=== PATIENT | female | born 1950 | race Caucasian/White ===

== ENCOUNTER → 2024-03-03 | Outpatient (CLI) | payer BC, MEDICARE, SELFPAY ==
[2024-03-03 09:04] LABS: Collection Type, Urine Clean Catch; Squamous Epithelial Cell,Urine 0 /hpf (0-5); WBC,Urine 0 /hpf (0-5)
[2024-03-03 09:24] LABS: Basophils % (Auto) 1 % (0-2.5); Eosinophils # (Auto) 0.2 Thou/mm3 (0.0-0.5); Eosinophils % (Auto) 4 % (0-10); Hematocrit 40.2 % (36.0-46.0); Hemoglobin 13.2 g/dL (12.0-16.0); Immature Granulocytes % (Auto) 0 % (0-0); Immature Granulocytes Auto 0.01 Thou/mm3 (0.00-0.00); Lymphocytes # (Auto) 1.6 Thou/mm3 (1.0-4.8); Lymphocytes % (Auto) 36 % (10-50); Mean Corpuscular HGB Conc 32.8 g/dl (31.0-37.0); Mean Corpuscular Volume 88 fL (80-100); Monocytes # (Auto) 0.4 Thou/mm3 (0.0-0.8); Monocytes % (Auto) 10 % (0-12); Neutrophils # (Auto) 2.1 Thou/mm3 (1.8-7.7); Neutrophils % (Auto) 49 % (37-80); Nucleated Red Blood Cell % 0 /100 WBC (0); Platelet Count 190 Thou/mm3 (140-440); RDW Standard Deviation 43.8 fL (36.4-46.3); Red Blood Count 4.55 Miln/mm3 (4.00-5.20); White Blood Count 4.3 Thou/mm3 (3.6-11.0)
[2024-03-03 09:29] LABS: Parathyroid Hormone Intact 93.1 pg/ml (18.5-88.0)
[2024-03-03 09:31] LABS: Albumin, Serum 4.3 gm/dL (3.4-4.8); Anion Gap 6 (7-16); BUN/Creatinine Ratio 17 Ratio (12-20); Blood Urea Nitrogen 22 mg/dL (9-23); Calcium 9.8 mg/dL (8.3-10.6); Calcium (Corrected) 9.8 mg/dL (8.5-10.1); Carbon Dioxide 30.1 mMol/L (20.0-31.0); Chloride 106 mMol/L (98-107); Creatinine (Component) 1.3 mg/dL (0.6-1.3); Glucose 129 mg/dL (74-106); Osmolality,Calculated 288 (275-295); Phosphorous 4.2 mg/dL (2.4-5.1); Potassium 4.4 mMol/L (3.4-5.1); Sodium 142 mMol/L (136-145); eGFR 43 See Note
[2024-03-03 09:34] LABS: Vitamin D 25 Hydroxy Total 30.8 ng/mL (7.3-40.2)
[2024-03-03 09:46] LABS: Glucose Estimated Average 171 mg/dL (80-131); Hemoglobin A1C 7.6 % Hgb (4.8-6.0)
[2024-03-03 09:47] LABS: Bilirubin,Urine Negative (Negative); Blood,Urine Negative (Negative); Clarity,Urine Clear (Clear/Hazy); Color,Urine Lt-Yellow (Lt Yel-Yel); Glucose, Urine 4+ (Negative); Ketones,Urine Negative (Negative); Leukocyte Esterase,Urine Negative (Negative); Nitrite,Urine Negative (Negative); PH,Urine 5.5 (5.0-7.0); Protein,Urine Negative (Neg - Trace); RBC,Urine < 1 /hpf (0-3); Specific Gravity,Urine 1.014 (1.001-1.035); Urobilinogen,Urine Negative mg/dL (0.0-1.0)
== END | disposition home or self-care (01) ==
PROVIDERS: PCP Internal Medicine; Referring Provider Internal Medicine; Visit Provider Internal Medicine
DX: E55.9 Vitamin D deficiency, unspecified (principal); E11.9 Type 2 diabetes mellitus without complications
CPT/HCPCS: 36415; 80069; 81001; 82306; 83036; 83970; 85025

== ENCOUNTER 2024-04-28 13:07 | Emergency (ER) | payer BC, MEDICARE, SELFPAY ==
[2024-04-28 13:52] VITALS: BP 113/68; PULSE 80; RESP 20; TEMP 36.6; O2SAT 100; BMI 25.8
--- NOTE | 2024-04-28 13:52 | XR_ITS ---
Examination: CT lumbar spine, without contrast. 2-D sagittal reconstructions. 2-D coronal reconstructions. 3-D reconstructions. Date and time of exam:April 28, 2024 1449 hrs. Indications: Patient fell today with injury to lower back, lower back pain CTDI: vol (mGy):18.4 DLP: (mGycm):521 Technique: Multiple 1.25 mm axial sections of the lumbar spine without intravenous contrast have been obtained. 2-D sagittal and coronal reconstructions have been obtained. 3-D reconstructions have been obtained. Low dose protocols were performed. One or more of the following dose reduction techniques were used; automated exposure control, adjustment of the mA and/or KV according to patient size, use of iterative reconstruction technique. Findings: Severe osteopenia Acute moderate compression fracture L2 vertebral body, reduction in height 40% Retropulsion posterior superior margin of this vertebral body at least 4 mm Advanced disc narrowing L4-L5 L4-L5 moderate to severe overall spinal stenosis, 8 mm central lumbar disc bulge Impression: Acute compression fracture L2 vertebral body, reduction in height 40% Retropulsion posterior superior margin of this vertebral body at least 4 mm
--- NOTE | 2024-04-28 13:52 | XR_ITS ---
Examination: CT brain head without contrast. 2-D sagittal coronal reconstructions Date and time of exam:April 28, 2024 1446 hrs. Indications: Patient fell today with injury to the head, head pain CTDI: vol (mGy):46.2 DLP: (mGycm):884 Technique: Multiple CT axial sections of the brain have been obtained, 5 mm slice thickness. Contrast has not been administered. 2-D sagittal, coronal reconstructions have been obtained Low dose protocols were performed. One or more of the following dose reduction techniques were used; automated exposure control, adjustment of the mA and/or KV according to patient size, use of iterative reconstruction technique. Findings: No significant ventricular enlargement. Intra-axial or extra-axial hemorrhage density is not seen. No mass effect or midline shift Basal cisterns are not remarkable. Fourth ventricle is midline. Cranial vault intact. Impression: Negative for acute hemorrhage, mass effect or midline shift
--- NOTE | 2024-04-28 13:52 | EKG_ITS ---
[facility] Test Date: 2024-04-28 Pat Name: LUCY CARRANZA Department: Room: - Gender: Female [employer] Operator: : 1950 Requested By: Lyle Aguilar (GILBERT) Order Number: [id number] Reading MD: Lyle Aguilar (GILBERT) Measurements Intervals Berthold Rate: 85 P: 66 CA: 189 QRS: -60 QRSD: 128 T: 37 QT: 355 QTc: 423 Interpretive Statements SINUS RHYTHM RIGHT BUNDLE BRANCH BLOCK [120+ ms QRS DURATION, UPRIGHT V1, 40+ ms S IN I/aVL/V4/V5/V6] LEFT ANTERIOR FASCICULAR BLOCK [QRS AXIS <= -45, QR IN I, RS IN II] POSSIBLE ANTERIOR MYOCARDIAL INFARCTION , OF INDETERMINATE AGE [30 ms Q WAVE IN V3/V4, OR R < 0.2 mV IN V4] Compared to ECG 10/24/2022 19:38:20 Left anterior fascicular block now present First degree AV block no longer present Left-axis deviation no longer present Myocardial infarct finding still present /store/S0/[id number]/ecg/[id number].pdf
--- NOTE | 2024-04-28 13:52 | XR_ITS ---
Examination: PA lateral chest 2 views Technique: Upright PA lateral chest 2 views Exam date and time: April 28, 2024 1402 hrs. Compared to 2022 Indications: Fever coughing shortness of breath today. Findings: Soft opacities in the right upper lobe Normal heart size Nodular density left lower lung zone which may represent nipple shadow Normal heart size Impression: Findings most consistent with early pneumonia in the right upper lobe, recommend short-term follow-up chest imaging
--- NOTE | 2024-04-28 13:53 | PD.EDRME ---
Rapid Medical Screening Exam RME Arrival date/time: 04/28/24 13:07 74-year-old female presents to the emergency department complains of headache, neck pain, lower back pain and generalized weakness Chief Complaint: Flu Like Symptoms
[2024-04-28 14:49] LABS: Basophils % (Auto) 0 % (0-2.5); Eosinophils # (Auto) 0.2 Thou/mm3 (0.0-0.5); Eosinophils % (Auto) 3 % (0-10); Hematocrit 41.4 % (36.0-46.0); Hemoglobin 13.9 g/dL (12.0-16.0); Immature Granulocytes % (Auto) 0 % (0-0); Immature Granulocytes Auto 0.01 Thou/mm3 (0.00-0.00); Lymphocytes # (Auto) 0.9 Thou/mm3 (1.0-4.8); Lymphocytes % (Auto) 14 % (10-50); Mean Corpuscular HGB Conc 33.6 g/dl (31.0-37.0); Mean Corpuscular Volume 86 fL (80-100); Monocytes # (Auto) 0.5 Thou/mm3 (0.0-0.8); Monocytes % (Auto) 8 % (0-12); Neutrophils # (Auto) 4.6 Thou/mm3 (1.8-7.7); Neutrophils % (Auto) 75 % (37-80); Nucleated Red Blood Cell % 0 /100 WBC (0); Platelet Count 153 Thou/mm3 (140-440); RDW Standard Deviation 40.8 fL (36.4-46.3); White Blood Count 6.1 Thou/mm3 (3.6-11.0)
[2024-04-28 15:15] LABS: B-Type Natriuretic Peptide < 20 pg/mL (0-100); Partial Thromboplastin Time 27.5 Seconds (22.0-36.0); Prothrombin Time 10.5 Seconds (9.0-12.2)
[2024-04-28 15:25] LABS: Alanine Aminotransferase 21 U/L (10-49); Albumin, Serum 4.4 gm/dL (3.4-4.8); Albumin/Globulin Ratio 1.6 (1.2-2.2); Anion Gap 10 (7-16); Aspartate Amino Transferase 18 U/L (0-34); BUN/Creatinine Ratio 23 Ratio (12-20); Bilirubin,Total 0.5 mg/dL (0.3-1.2); Blood Urea Nitrogen 27 mg/dL (9-23); Calcium 9.3 mg/dL (8.3-10.6); Calcium (Corrected) 9.3 mg/dL (8.5-10.1); Carbon Dioxide 24.1 mMol/L (20.0-31.0); Chloride 100 mMol/L (98-107); Creatinine (Component) 1.2 mg/dL (0.6-1.3); Estimated Creatinine Clearance 41.3 mL/min (>60); Free T4 (Free Thyroxine) 1.31 ng/dL (0.89-1.76); Globulin 2.8 gm/dL (2.3-3.5); Glucose 296 mg/dL (74-106); Magnesium 2.1 mg/dL (1.6-2.6); Osmolality,Calculated 284 (275-295); Sodium 134 mMol/L (136-145); Thyroid Stimulating Hormone 4.28 uIU/mL (0.55-4.78); Total Protein 7.2 gm/dL (5.7-8.2); Troponin I < 0.020 ng/mL (0.0-0.045); eGFR 47 See Note
[2024-04-28 15:30] LABS: Collection Type, Urine Clean Catch
[2024-04-28 15:36] LABS: Alkaline Phosphatase 73 U/L (46-116)
[2024-04-28 15:55] LABS: Amphetamine/Methamp Scrn,U Negative (Negative); Barbiturate Screen,Urine Negative (Negative); Benzodiazepines Screen,Urine Negative (Negative); Benzoylecgonine Screen, Ur Negative (Negative); Fentanyl Screen,Urine Negative (Negative); Opiate Screen,Urine Negative (Negative); THC Screen,Urine Negative (Negative)
--- NOTE | 2024-04-28 16:03 | EDNOTE_ITS ---
<Statement entered by Tiffanie Luong MD - 05/10/24 16:28> As co-signing physician, I was present and available for consult prn. I concur with the plan and care as documented by the midlevel provider. ED General RME/HPI General Chief complaint: Flu Like Symptoms Stated complaint: COUGH, SOB, SORE THROAT, RIGHT EAR ACHE, DIZZY Time Seen by Provider: 04/28/24 14:58 Arrival date/time: 04/28/24 13:07 CC: Cough, low back pain HPI onset 3 to close patient began to have a cough and URI type symptoms, then 3 days ago, on Sunday, the patient fell over onto her left side immediately experiencing low back pain. Patient continues to have the cough but denies any bowel or bladder symptoms saddle anesthesia numbness tingling or weakness in her lower extremities. Back pain is rated at a 6 on a 10 scale. No prior history of similar events no other family members are ill with similar symptoms. Patient denies fever shortness of breath or difficulty breathing. RME / HPI RME / HPI narrative: 04/28/24 13:07 74-year-old female presents to the emergency department complains of headache, neck pain, lower back pain and generalized weakness Related Data Home Medications ?Medication ?Instructions ?Recorded ?Confirmed nateglinide 120 mg tablet 1 tab PO TID 04/03/19 rosuvastatin 5 mg tablet (Crestor) 5 mg PO QDAY 11/25/21 fluoxetine 20 mg tablet 20 mg PO QDAY 11/24/2111/25 glimepiride 2 mg tablet 2 mg PO QAM 11/24/21 2 levothyroxine 25 mcg tablet 25 mcg PO QDAY 11/24/21 loratadine 10 mg tablet 10 mg PO QDAY 11/24/2111/25 pregabalin 50 mg capsule 50 mg PO BID 11/24/21 Previous Rx's ?Medication ?Instructions ?Recorded carvedilol 3.125 mg tablet (Coreg) 6.25 mg (2 x 3.125 mg) PO BID #0 09/15/19 tabs clopidogrel 75 mg tablet (Plavix) 75 mg PO QDAY #30 ta bs 09/15/19 Held on 11/25/21. Instructions: Resume on 11/29/21. doxycycline hyclate 100 mg capsule 100 mg PO BID #14 c aps 04/28/24 meloxicam 7.5 mg tablet 7.5 mg PO QDAY #10 tabs 04/06 06/27 Allergies Allergy/AdvReac Type Severity Reaction Status Date / Time nitrofurantoin (From Allergy Severe Hives Verified 10/24/22 18:48 Macrobid) Sulfa (Sulfonamide Allergy Severe ANAPHYLAXIS, Verified 10/24/22 18:48 Antibiotics) HIVES Review of Systems Review of Systems Narrative Review of Systems: GEN: No fever, no chills, no weight loss EYES: No discharge, no visual changes, no pain HEENT: No ear pain, no congestion, no sore throat PULM: No shortness of breath, no cough, no congestion CV: No chest pain, no dyspnea on exertion, no palpitations GI: No nausea, no vomiting, no diarrhea, no pain, no constipation : No frequency, no urgency, no dysuria MUSC/SKEL: No joint pain, + back pain SKIN: No rash PSYCH: No hallucinations, no depression HEME/LYMPH: No easy bleeding or bruising tendencies NEURO: No weakness, no headache Past Medical History Past Medical History NEUROLOGIC: Positive Migraine; Negative Neurological Disorders or Seizures CARDIAC: Positive Cardiac Disorders (CORONARY STENT 04/24 (1)), Myocardial Infarction ( HOSP), Hypercholesterolemia (TAKES MED) and Hypertension (TAKES MED); Negative Cardiac Arrhythmia, Atrial Fibrillation, Angina, Atherosclerotic Heart Disease, Peripheral Vascular Disease, Aneurysm, Congestive Heart Failure, Valvular Heart Disease, Rheumatic Fever, Edema, Pericarditis, Cellulitis (SCRATCHES YULI ARMS DUE TO PUPPY HAS SCRATCH RIGHT LEG FROM FURNITURE) or Varicose Veins RESPIRATORY: Positive Asthma; Negative Chronic Obstructive Pulmonary Disease (COPD) GASTROINTESTINAL: Negative Gastrointestinal Disorders or Hepatitis GENITOURINARY: Negative Genitourinary Disorders or Renal Disease REPRODUCTIVE: Positive Breast Cancer (FOR THIS PROC) and Previous Pregnancies (X2); Negative Pelvic Inflammatory Disease MUSCULOSKELETAL: Positive Musculoskeletal Disorders, Carpal Tunnel Syndrome (RIGHT) and Fibromyalgia; Negative Fractures ENDOCRINE: Positive Endocrine Disorders, Diabetes Mellitus Type 2 (TAKES PO MED), Hyperthyroidism and Hypothyroidism (TAKES MED); Negative Diabetes Mellitus Type 1, Hypoglycemia, Wendy's Syndrome, Timothy's Disease, Parathyroid Disease, Pituitary Disease, Systemic Lupus Erythematosus, Syndrome of Inappropriate Antidiuretic Hormone (SIADH), Adrenal Disease or Graves' Disease HEMATOLOGIC: Negative Blood Disorders PSYCHO/SOCIAL: Positive Depression (TAKES MED) and Anxiety (TAKES MED) OTHER HISTORY: Positive Hospitalization (HOSP [place],ELEVATED UNCONTROLLED B/P), Shingles (2020), Chicken Pox, Measles, Mumps, Cancer and Breast Cancer (FOR THIS PROC); Negative Autoimmune Disease, Falls, Blood Transfusions, Blood Transfusion Reaction, Anesthesia Reactions, Organ Transplant, Chemotherapy, Radiation Therapy, MRSA, Pertussis or Clostridium Difficile Family History FAMILY HISTORY: Positive Family Psychiatric Problems (SISTER (DEPRESSION,ANXIETY)), Family Respiratory Disorders (BROTHER (COPD)), Family Cardiac Disorders (mother and sister (VT,HTN),SISTER (CVA)), Family Gastrointestinal Problems (MOTHER,SISTERS (GALL BLADDER)), Family Cancer (BROTHER (LUNG),FATHER (PROSTATE,PANCREAS)), Family Surgery (MOTHER,SISTERS,BROTHERS,FATHER) and Family Anesthesia Reaction (MOTHER,SISTER (GI UPSET)); Negative Family Neurologic Problems Surgical History SURGICAL: Positive Cardiac Surgery, Coronary Stent (X1 04/24), Cardiac Catheterization, Angiogram, Abdominal Surgery, Hysterectomy (KHLOE WITH YULI DANIEL) and Tubal Ligation; Negative Pacemaker or Organ Transplant Social History SMOKING STATUS: Never smoker ED Exam Narrative Physical exam: [General: In mild discomfort but not in any acute distress Head normocephalic HEENT: Within acceptable limits Neck is supple nontender Chest equal chest rise nontender to palpation Respiratory: Clear to auscultation no wheezes crackles or rubs CV: Rate rhythm is regular no murmurs rubs or clicks Abdomen is soft nontender no masses positive bowel sounds all 4 quadrants Back: No CVA tenderness no spinous process tenderness from cervical spine thoracic and lumbar spine Skin: Intact no petechiae rash induration ulceration or crepitus Extremities: Moving all extremity against resistance cap refill less than 2 seconds neurosensory intact Neuro: Awake alert oriented x3 Glascow coma 15 no focal deficits] Course Quality Measures none Orders Category Date Time Status EKG (ED ONLY) *Do not use* NOW Care 04/28/24 13:[address] head/brain wo con Stat Exams 04/28/24 13:[address] lumbar spine wo con Stat Exams 04/28/24 13:52 Completed EKG (ED Only) Stat Exams 04/28/24 13:52 Draft XR chest 2V Stat Exams 04/28/24 13:52 Completed B-Type Natriuretic Peptide Stat Lab 04/28/24 14:22 Completed CBC Stat Lab 04/28/24 14:22 Completed Comprehensive Metabolic Panel Stat Lab 04/28/24 14:22 Completed Drug Screen,Urine Stat Lab 04/28/24 15:02 Completed Free T4 (Free Thyroxine) Stat Lab 04/28/24 14:22 Completed Magnesium Stat Lab 04/28/24 14:22 Completed Partial Thromboplastin Time Stat Lab 04/28/24 14:22 Completed Prothrombin Time with INR Stat Lab 04/28/24 14:22 Completed TSH [Thyroid Stimulating Hormone] Stat Lab 04/28/24 14:22 Completed Troponin I Stat Lab 04/28/24 14:22 Completed Urinalysis Stat Lab 04/28/24 15:02 Completed cefTRIAXone [Rocephin] 1,000 mg Med 04/28/24 15:57 Discontinued Lidocaine 1% 20 ml [Xylocaine 1% 20 ML] 2.1 ml IM X1 oxyCODONE/APAP 5/325 [Percocet 5/325] Med 04/28/24 15:59 Discontinued 1 tab PO X1 ONE Vital Signs Vital signs: Vital Signs Temperature 97.9 F 04/28/24 13:52 Pulse Rate 80 04/28/24 13:52 Respiratory Rate 20 04/28/24 13:52 Blood Pressure 113/68 04/28/24 13:52 Pulse Oximetry (%) 100 04/28/24 13:52 Oxygen Delivery Method Room Air 04/28/24 13:52 [facility] Patient data External records reviewed:: [facility] previous records Clinical information provided by:: patient and spouse Social determinants that could affect healthcare access:: none Patient has the following chronic illnesses:: Stent placement on thinners hypothyroidism diabetes hypertension How is presenting disease/condition affected by chronic disease/condition?: u neffected by Evaluation data The following diagnostics were reviewed and interpreted by me:: lab results, radiology exam(s) and EKG tracing(s) Lab and/or radiology exams considered but not ordered:: CBC shows no acute leukocytosis anemia thrombocytopenia Coags within acceptable limits CMP shows sodium 134 BUN of 27 glucose of 296 no transaminitis or T. bili elevation Troponin is less than 0.020, BNP is less than 20. TSH of 4.28 Free T4 of 1.31 Chest x-ray inter by me read by radiology shows early base pneumonia. CT of the head is interpreted by me read by radiology as negative for any acute finding. CT L-spine shows the patient has an L2 compression fracture 40% of vertebral height. Interpretation Summary: Patient has no focal deficits, is awake alert and oriented, with no lower extremity neurologic dysfunction. The patient is nontoxic-appearing but with persistent cough I will treat the pneumonia as a bacterial pneumonia in addition a TLSO brace will be ordered on the patient. Medications Medications considered but not ordered:: None Medication administrations:: Medication Administration History Discontinued Medications Ceftriaxone Sodium 1,000 mg/ (Lidocaine HCl 2.1 ml) 0 mg IM X1 ONE Stop: 04/28/24 15:58 Last Admin: 04/28/24 16:07 Dose: 1,000 mg Documented By: MARIA R Comments: 2.1 ml lidocaine Oxycodone/Acetaminophen (Oxycodone/Apap 5/325 Tablet) 1 tab PO X1 ONE Stop: 04/28/24 16:00 Last Admin: 04/28/24 16:07 Dose: 1 tab Documented By: MARIA R None Consultations Consultation(s) initiated? (list below): No Diagnosis Differential Diagnosis ED Complaint MDM: Pneumonia L2 compression fracture URI Most likely diagnosis given after review of the tests above:: Pneumonia L2 compression fracture Admission Indicated Admission indicated?: not indicated Explain why admission is indicated or not indicated:: Stable for discharge Admission Request Was there a request for admission?: No Disposition Plan Disposition Plan: Discharge Discharge Attestation Discharge Attestation: The patient and all family members were given an opportunity to ask questions and understood the discharge instructions. Discharge instructions specifically effects, indications for sooner follow up or return to the emergency department, and the expected course of current diagnosis. Patient condition: Stable Medical Decision Making Differential Diagnosis Differential Diagnosis: Pneumonia L2 compression fracture URI Lab Data 04/28/24 14:22 04/28/24 14:22 Labs: Lab Results 04/28/24 04/28/24 Range/Units 14:22 15:02 WBC 6.1 (3.6-11.0) Thou/mm3 RBC 4.80 (4.00-5.20) Miln/mm3 Hgb 13.9 (12.0-16.0) g/dL Hct 41.4 (36.0-46.0) % MCV 86 (80-100) fL MCH 29.0 (25.0-35.0) pg MCHC 33.6 (31.0-37.0) g/dl RDW Std Deviation 40.8 (36.4-46.3) fL Plt Count 153 (140-440) Thou/mm3 Neut % (Auto) 75 (37-80) % Lymph % (Auto) 14 (10-50) % Latimer % (Auto) 8 (0-12) % Eos % (Auto) 3 (0-10) % Baso % (Auto) 0 (0-2.5) % Neut # (Auto) 4.6 (1.8-7.7) Thou/mm3 Lymph # (Auto) 0.9 L (1.0-4.8) Thou/mm3 Latimer # (Auto) 0.5 (0.0-0.8) Thou/mm3 Eos # (Auto) 0.2 (0.0-0.5) Thou/mm3 Baso # (Auto) 0.0 (0.0-0.2) Thou/mm3 Immature Gran # (Auto) 0.01 H (0.00-0.00) Thou/mm3 Absolute Nucleated RBC 0.00 (0.00-0.00) Thou/mm3 Immature Gran % 0 (0-0) % Nucleated RBC % 0 (0) /100 WBC PT 10.5 (9.0-12.2) Seconds INR 1.0 (0.9-1.3) APTT 27.5 (22.0-36.0) Seconds Sodium 134 L (136-145) mMol/L Potassium 4.0 (3.4-5.1) mMol/L Chloride 100 (98-107) mMol/L Carbon Dioxide 24.1 (20.0-31.0) mMol/L Anion Gap 10 (7-16) BUN 27 H (9-23) mg/dL Creatinine 1.2 (0.6-1.3) mg/dL Estim Creat Clear Calc 41.3 L (>60) mL/min eGFR 47 L (60 - ) See Note BUN/Creatinine Ratio 23 H (12-20) Ratio Glucose 296 H (74-106) mg/dL Calculated Osmolality 284 (275-295) Calcium 9.3 (8.3-10.6) mg/dL Corrected Calcium 9.3 (8.5-10.1) mg/dL Magnesium 2.1 (1.6-2.6) mg/dL Total Bilirubin 0.5 (0.3-1.2) mg/dL AST 18 (0-34) U/L ALT 21 (10-49) U/L Alkaline Phosphatase 73 (46-116) U/L Troponin I < 0.020 (0.0-0.045) ng/mL B-Natriuretic Peptide < 20 (0-100) pg/mL Total Protein 7.2 (5.7-8.2) gm/dL Albumin 4.4 (3.4-4.8) gm/dL Globulin 2.8 (2.3-3.5) gm/dL Albumin/Globulin Ratio 1.6 (1.2-2.2) TSH 4.28 (0.55-4.78) uIU/mL Free T4 1.31 (0.89-1.76) ng/dL Ur Collection Type Clean Catch Urine Color Lt-Yellow (Lt Yel-Yel) Urine Clarity Clear (Clear/Hazy) Urine pH 6.0 (5.0-7.0) Ur Specific Chadwick 1.038 H (1.001-1.035) Urine Protein Negative (Neg - Trace) Urine Glucose (UA) 4+ A (Negative) Urine Ketones 1+ A (Negative) Urine Blood Trace (Negative) Urine Nitrite Negative (Negative) Urine Bilirubin Negative (Negative) Urine Urobilinogen (Auto) Negative (0.0-1.0) mg/dL Ur Leukocyte Esterase Negative (Negative) Urine RBC < 1 (0-3) /hpf Urine WBC < 1 (0-5) /hpf Ur Squamous Epith Cells 1 (0-5) /hpf Amorphous Crystals Present A (Absent) Urine Bacteria Rare (None) Urine Opiates Screen Negative (Negative) Urine Fentanyl Screen Negative (Negative) Ur Barbiturates Screen Negative (Negative) U Amphetamin/Meth Scrn Negative (Negative) U Benzodiazepines Scrn Negative (Negative) U Cocaine Metab Screen Negative (Negative) U Marijuana (THC) Screen Negative (Negative) Discharge Plan Plan Patient Disposition: HOME (Self Care) Patient condition on transfer: Stable Prescriptions/Referrals Prescriptions/Med Rec: New meloxicam 7.5 mg tablet 7.5 mg PO QDAY Qty: 10 0RF doxycycline hyclate 100 mg capsule 100 mg PO BID Qty: 14 0RF No Action nateglinide 120 mg tablet 1 tab PO TID Patient Comments: TAKE 1 TABLET BY MOUTH THREE TIMES A DAY clopidogrel [Plavix] 75 mg Tablet 75 mg PO QDAY Qty: 30 0RF carvedilol [Coreg] 3.125 mg Tablet 6.25 mg PO BID Qty: 0 0RF rosuvastatin [Crestor] 5 mg Tablet 5 mg PO QDAY glimepiride 2 mg Tablet 2 mg PO QAM Rx Instructions: administer with breakfast fluoxetine 20 mg Tablet 20 mg PO QDAY loratadine 10 mg Tablet 10 mg PO QDAY pregabalin 50 mg Capsule 50 mg PO BID levothyroxine 25 mcg Tablet 25 mcg PO QDAY Referrals: Yg Torres MD [Primary Care Provider] - In 1 week Problem List Clinical Impression: Compression fx, lumbar spine, Pneumonia Patient/Caregiver Discharge Instructions Education Materials: ED Fracture, Vertebral Compression, ED Pneumonia (Adult) Additional Instructions: Take the medications as prescribed wear the TLSO brace for 6 to 8 weeks, follow- up with your primary care provider get a referral to back specialist. If there is worsening of symptoms return the emergency room for reevaluation. While taking the pain medication do not take any ibuprofen or Motrin. You may take Tylenol. Follow-up with your primary care provider for continued pain management. If there is any excessive bleeding black stools return to the emergency room immediately. If there is a worsening of pain urinary or fecal incontinence, numbness in your perianal area or profound tingling weakness in your lower extremities return immediately to the emergency room for reevaluation. Avoid all lifting or bending over. Find positions of comfort during rest or sleep. Print Language: Portuguese Stand Alone Forms: Rachel Award Info., Work/School Release, Patient Portal Info Letter ELVER/MICHELLE Supervising Physician ELVER/MICHELLE Supervising Physician: Jayesh Venegas ENP
[2024-04-28 16:07] LABS: Amorphous Crystals,Urine Present (Absent); Bacteria,Urine Rare; Bilirubin,Urine Negative (Negative); Blood,Urine Trace (Negative); Clarity,Urine Clear (Clear/Hazy); Color,Urine Lt-Yellow (Lt Yel-Yel); Glucose, Urine 4+ (Negative); Ketones,Urine 1+ (Negative); Leukocyte Esterase,Urine Negative (Negative); Nitrite,Urine Negative (Negative); Protein,Urine Negative (Neg - Trace); RBC,Urine < 1 /hpf (0-3); Specific Gravity,Urine 1.038 (1.001-1.035); Squamous Epithelial Cell,Urine 1 /hpf (0-5); Urobilinogen,Urine Negative mg/dL (0.0-1.0); WBC,Urine < 1 /hpf (0-5)
[2024-04-28] MEDS: cefTRIAXone 1,000 MG, LIDOCAINE 1% 20 ML 2.1 ML IM (16:07)
[2024-04-28] MEDS: oxyCODONE/APAP 5/325 TABLET 1 TAB PO (16:07)
--- NOTE | 2024-04-28 16:33 | PC.CC ---
Misty SALEEM was consulted by GILBERT Venegas regarding a TSLO Brace for the patient. HARPER obtained a purchase requisition and had bridge crew member Kim sign it. HARPER made contact with [employer] and sent over documents needed to order brace for the patient Ciarra reports they will make contact with the patient today.
== END 2024-04-28 17:13 | disposition home or self-care (01) ==
PROVIDERS: Nurse Practitioner Primary Care; Emergency Provider Emergency Medicine; PCP Internal Medicine
DX: M48.56XA Collapsed vertebra, not elsewhere classified, lumbar region, initial encounter for fracture (principal); J18.9 Pneumonia, unspecified organism
CPT/HCPCS: 36415; 70450; 71046; 72131; 80053; 80307; 81001; 83735; 83880; 84439; 84443; 84484; 85025; 85610; 85730; 93005; 96372; 99284; J0696; J3490; A9270

== ENCOUNTER → 2024-07-02 | Outpatient (CLI) | payer BC, MEDICARE, SELFPAY ==
[2024-07-02 08:38] LABS: Basophils # (Auto) 0.1 Thou/mm3 (0.0-0.2); Basophils % (Auto) 1 % (0-2.5); Eosinophils # (Auto) 0.3 Thou/mm3 (0.0-0.5); Eosinophils % (Auto) 7 % (0-10); Hematocrit 41.7 % (36.0-46.0); Hemoglobin 13.8 g/dL (12.0-16.0); Immature Granulocytes % (Auto) 0 % (0-0); Immature Granulocytes Auto 0.01 Thou/mm3 (0.00-0.00); Lymphocytes # (Auto) 1.7 Thou/mm3 (1.0-4.8); Lymphocytes % (Auto) 41 % (10-50); Mean Corpuscular HGB Conc 33.1 g/dl (31.0-37.0); Mean Corpuscular Hemoglobin 29.4 pg (25.0-35.0); Mean Corpuscular Volume 89 fL (80-100); Monocytes # (Auto) 0.4 Thou/mm3 (0.0-0.8); Monocytes % (Auto) 10 % (0-12); Neutrophils # (Auto) 1.7 Thou/mm3 (1.8-7.7); Neutrophils % (Auto) 41 % (37-80); Nucleated Red Blood Cell % 0 /100 WBC (0); Platelet Count 188 Thou/mm3 (140-440); RDW Standard Deviation 42.9 fL (36.4-46.3); White Blood Count 4.2 Thou/mm3 (3.6-11.0)
[2024-07-02 09:12] LABS: Alanine Aminotransferase 15 U/L (10-49); Albumin, Serum 4.3 gm/dL (3.4-4.8); Albumin/Globulin Ratio 1.7 (1.2-2.2); Alkaline Phosphatase 84 U/L (46-116); Anion Gap 8 (7-16); Aspartate Amino Transferase 21 U/L (0-34); BUN/Creatinine Ratio 21 Ratio (12-20); Bilirubin,Total 0.4 mg/dL (0.3-1.2); Blood Urea Nitrogen 27 mg/dL (9-23); Calcium 9.3 mg/dL (8.3-10.6); Calcium (Corrected) 9.3 mg/dL (8.5-10.1); Carbon Dioxide 28.1 mMol/L (20.0-31.0); Chloride 107 mMol/L (98-107); Creatinine (Component) 1.3 mg/dL (0.6-1.3); Globulin 2.5 gm/dL (2.3-3.5); Glucose 126 mg/dL (74-106); Osmolality,Calculated 292 (275-295); Potassium 4.3 mMol/L (3.4-5.1); Sodium 143 mMol/L (136-145); Total Protein 6.8 gm/dL (5.7-8.2); eGFR 43 See Note
== END | disposition home or self-care (01) ==
PROVIDERS: PCP Internal Medicine; Referring Provider Internal Medicine Hematology & Oncology; Visit Provider Internal Medicine Hematology & Oncology
DX: C50.411 Malignant neoplasm of upper-outer quadrant of right female breast (principal)
CPT/HCPCS: 36415; 80053; 85025

== ENCOUNTER 2024-07-07 15:20 | Outpatient (RCR) | payer BC, MEDICARE, SELFPAY | END 2024-08-02 23:59 | disposition home or self-care (01) | LOC: SCTC 15:20 | PROVIDERS: PCP Internal Medicine; Referring Provider Internal Medicine; Visit Provider Nurse Practitioner Family | DX: C50.411 Malignant neoplasm of upper-outer quadrant of right female breast (principal); Z17.0 Estrogen receptor positive status [ER+]; Z17.22 Progesterone receptor negative status; Z17.32 Human epidermal growth factor receptor 2 negative status; Z90.11 Acquired absence of right breast and nipple; Z79.811 Long term (current) use of aromatase inhibitors; M85.80 Other specified disorders of bone density and structure, unspecified site; E11.22 Type 2 diabetes mellitus with diabetic chronic kidney disease; I12.9 Hypertensive chronic kidney disease with stage 1 through stage 4 chronic kidney disease, or unspecified chronic kidney disease; N18.9 Chronic kidney disease, unspecified; S32.009A Unspecified fracture of unspecified lumbar vertebra, initial encounter for closed fracture; W19.XXXA Unspecified fall, initial encounter | CPT/HCPCS: 99212; G0463 ==

== ENCOUNTER → 2024-07-09 | Outpatient (CLI) | payer BC, MEDICARE, SELFPAY ==
--- NOTE | 2024-07-09 | XR_ITS ---
Examination: Lumbar spine, 5 views Technique: Lumbar spine AP, lateral, coned lateral lower lumbar spine, bilateral obliques 5 views Exam date and time: The 2024 1231 hours INDICATIONS: Patient fell 3 months ago with injury to lower back, lower back pain. FINDINGS: Interval moderately severe compression fracture L2 compared with April 11, 2023 This would be consistent with 3 months time Of acute fracture Advanced degenerative disc disease L4-L5 IMPRESSION: Interval moderately severe healing compression fracture L2
== END | disposition home or self-care (01) ==
PROVIDERS: PCP Internal Medicine; Referring Provider Nurse Practitioner Family; Visit Provider Nurse Practitioner Family
DX: S32.029A Unspecified fracture of second lumbar vertebra, initial encounter for closed fracture (principal); W19.XXXA Unspecified fall, initial encounter; C50.411 Malignant neoplasm of upper-outer quadrant of right female breast
CPT/HCPCS: 72110

== ENCOUNTER → 2024-07-25 | Outpatient (CLI) | payer BC, MEDICARE, SELFPAY ==
[2024-07-25 08:45] LABS: Glucose Estimated Average 166 mg/dL (80-131); Hemoglobin A1C 7.4 % Hgb (4.8-6.0)
[2024-07-25 08:58] LABS: Alanine Aminotransferase 16 U/L (10-49); Albumin, Serum 4.3 gm/dL (3.4-4.8); Albumin/Globulin Ratio 1.7 (1.2-2.2); Alkaline Phosphatase 78 U/L (46-116); Anion Gap 11 (7-16); Aspartate Amino Transferase 20 U/L (0-34); BUN/Creatinine Ratio 15 Ratio (12-20); Bilirubin,Total 0.4 mg/dL (0.3-1.2); Blood Urea Nitrogen 21 mg/dL (9-23); Calcium 8.8 mg/dL (8.3-10.6); Calcium (Corrected) 8.8 mg/dL (8.5-10.1); Carbon Dioxide 25.7 mMol/L (20.0-31.0); Chloride 106 mMol/L (98-107); Creatinine (Component) 1.4 mg/dL (0.6-1.3); Globulin 2.6 gm/dL (2.3-3.5); Glucose 165 mg/dL (74-106); Osmolality,Calculated 291 (275-295); Potassium 4.3 mMol/L (3.4-5.1); Sodium 143 mMol/L (136-145); Total Protein 6.9 gm/dL (5.7-8.2); eGFR 39 See Note
== END | disposition home or self-care (01) ==
LOC: COPL 07:49
PROVIDERS: PCP Internal Medicine; Referring Provider Internal Medicine; Visit Provider Internal Medicine
DX: E11.65 Type 2 diabetes mellitus with hyperglycemia (principal); A09 Infectious gastroenteritis and colitis, unspecified
CPT/HCPCS: 36415; 80053; 83036

== ENCOUNTER → 2024-07-29 | Outpatient (CLI) | payer BC, MEDICARE, SELFPAY ==
[2024-07-29 12:36] LABS: OBS Performed By LAB; OBS QC OK? Yes
[2024-07-29 14:07] LABS: OBS Developer Lot # 551749; Occult Blood, Stool Negative (Negative)
== END | disposition home or self-care (01) ==
LOC: SLDO 11:25
PROVIDERS: PCP Internal Medicine; Referring Provider Internal Medicine; Visit Provider Internal Medicine
DX: E11.65 Type 2 diabetes mellitus with hyperglycemia (principal); A09 Infectious gastroenteritis and colitis, unspecified
CPT/HCPCS: 82270; 87015; 87045; 87046; 87177; 87205; 87209; 87899

== ENCOUNTER → 2024-07-30 | Outpatient (CLI) | payer BC, MEDICARE, SELFPAY ==
--- NOTE | 2024-07-30 13:15 | XR_ITS ---
Examination: Screening digital mammography, bilateral Computer aided detection 3-D breast Tomosynthesis, bilateral Date and time of exam: July 22, 2024 1326 hours Compared to mammograms dating to March 03, 2011 Indication: Screening Technique: Nonmagnified MLO, CC views of the breasts to been obtained, reconstructed from 3-D Tomosynthesis images. R2 computer aided detection program utilized for evaluation of suspicious masses and/or abnormal calcifications. 3-D Tomosynthesis images obtained. Findings: Scattered areas of fibroglandular density 8mm focal asymmetry upper outer right breast posterior depth Benign calcifications Impression: BI-RADS Category 0: Incomplete: Need additional imaging evaluation Recommend follow-up spot tomographic views of 8 mm focal asymmetry upper outer right breast posterior depth as well as right breast sonography to complete the workup
--- NOTE | 2024-07-30 13:30 | XR_ITS ---
Examination: Bone densitometry Date and time of exam:July 22, 2024 1350 hours INDICATIONS: Hysterectomy age 48, postmenopausal lumbar spine fracture 3 months ago, vitamin D and calcium 3 years Technique: Lumbar spine and hip total bone mineralization values of an calculated. Peak reference and age match control results have been displayed. Findings: Lumbar spine total bone mineralization is1.238 gm/cm2. This is 1.7 standard deviations above peak reference. This is 4.1 standard deviations above age-matched controls. Hip total bone mineralization is 0.982 gm/cm2 This is 0.3 standard deviations above peak reference. This is 2.1 standard deviations above age-matched controls Impression: There is normal mineralization based on lumbar spine measurements. There is osteopenia based on hip measurements Lumbar mineralization is increased 6.7% compared with February 05, 2019 Hip mineralization is increase 0.1% compared with February 05, 2019
== END | disposition home or self-care (01) ==
LOC: CDIM 13:17
PROVIDERS: PCP Internal Medicine; Referring Provider Nurse Practitioner Family; Visit Provider Nurse Practitioner Family
DX: Z12.31 Encounter for screening mammogram for malignant neoplasm of breast (principal); R92.8 Other abnormal and inconclusive findings on diagnostic imaging of breast; N64.89 Other specified disorders of breast; M85.89 Other specified disorders of bone density and structure, multiple sites
CPT/HCPCS: 77063; 77067; 77080

== ENCOUNTER 2024-08-07 13:54 | Outpatient (RCR) | payer BC, MEDICARE, SELFPAY | END 2024-09-01 23:59 | disposition home or self-care (01) | LOC: SCTC 13:54 | PROVIDERS: PCP Internal Medicine; Referring Provider Internal Medicine; Visit Provider Nurse Practitioner Family | DX: C50.411 Malignant neoplasm of upper-outer quadrant of right female breast (principal); Z17.0 Estrogen receptor positive status [ER+]; Z17.22 Progesterone receptor negative status; Z17.32 Human epidermal growth factor receptor 2 negative status; Z90.11 Acquired absence of right breast and nipple; Z79.811 Long term (current) use of aromatase inhibitors; M85.80 Other specified disorders of bone density and structure, unspecified site; M48.56XD Collapsed vertebra, not elsewhere classified, lumbar region, subsequent encounter for fracture with routine healing; I12.9 Hypertensive chronic kidney disease with stage 1 through stage 4 chronic kidney disease, or unspecified chronic kidney disease; E11.22 Type 2 diabetes mellitus with diabetic chronic kidney disease; N18.9 Chronic kidney disease, unspecified; Z79.84 Long term (current) use of oral hypoglycemic drugs | CPT/HCPCS: 99212; G0463 ==

== ENCOUNTER → 2024-08-08 | Outpatient (CLI) | payer BC, MEDICARE, SELFPAY ==
[2024-08-08 10:36] LABS: Alanine Aminotransferase 13 U/L (10-49); Albumin, Serum 3.9 gm/dL (3.4-4.8); Alkaline Phosphatase 66 U/L (46-116); Anion Gap 11 (7-16); Aspartate Amino Transferase 19 U/L (0-34); BUN/Creatinine Ratio 15 Ratio (12-20); Bilirubin,Total 0.4 mg/dL (0.3-1.2); Blood Urea Nitrogen 18 mg/dL (9-23); Calcium 8.3 mg/dL (8.3-10.6); Calcium (Corrected) 8.4 mg/dL (8.5-10.1); Carbon Dioxide 29.3 mMol/L (20.0-31.0); Chloride 104 mMol/L (98-107); Creatinine (Component) 1.2 mg/dL (0.6-1.3); Glucose 134 mg/dL (74-106); Osmolality,Calculated 290 (275-295); Sodium 144 mMol/L (136-145); Thyroid Stimulating Hormone 2.17 uIU/mL (0.55-4.78); Total Protein 5.9 gm/dL (5.7-8.2); eGFR 47 See Note
== END | disposition home or self-care (01) ==
LOC: COPL 09:11
PROVIDERS: PCP Internal Medicine; Referring Provider Internal Medicine; Visit Provider Internal Medicine
DX: I10 Essential (primary) hypertension (principal)
CPT/HCPCS: 36415; 80053; 84439; 84443

== ENCOUNTER → 2024-08-28 | Outpatient (CLI) | payer BC, MEDICARE, SELFPAY ==
[2024-08-28 09:41] LABS: Collection Type, Urine Clean Catch
[2024-08-28 09:59] LABS: Basophils % (Auto) 1 % (0-2.5); Eosinophils # (Auto) 0.2 Thou/mm3 (0.0-0.5); Eosinophils % (Auto) 5 % (0-10); Hematocrit 38.9 % (36.0-46.0); Hemoglobin 12.9 g/dL (12.0-16.0); Immature Granulocytes % (Auto) 0 % (0-0); Immature Granulocytes Auto 0.01 Thou/mm3 (0.00-0.00); Lymphocytes # (Auto) 1.4 Thou/mm3 (1.0-4.8); Lymphocytes % (Auto) 35 % (10-50); Mean Corpuscular HGB Conc 33.2 g/dl (31.0-37.0); Mean Corpuscular Hemoglobin 28.6 pg (25.0-35.0); Mean Corpuscular Volume 86 fL (80-100); Monocytes # (Auto) 0.4 Thou/mm3 (0.0-0.8); Monocytes % (Auto) 10 % (0-12); Neutrophils # (Auto) 1.9 Thou/mm3 (1.8-7.7); Neutrophils % (Auto) 50 % (37-80); Nucleated Red Blood Cell % 0 /100 WBC (0); Platelet Count 178 Thou/mm3 (140-440); Red Blood Count 4.51 Miln/mm3 (4.00-5.20); White Blood Count 3.9 Thou/mm3 (3.6-11.0)
[2024-08-28 10:09] LABS: Glucose Estimated Average 160 mg/dL (80-131); Hemoglobin A1C 7.2 % Hgb (4.8-6.0)
[2024-08-28 10:17] LABS: Alanine Aminotransferase 15 U/L (10-49); Albumin, Serum 4.2 gm/dL (3.4-4.8); Alkaline Phosphatase 69 U/L (46-116); Anion Gap 8 (7-16); Aspartate Amino Transferase 19 U/L (0-34); BUN/Creatinine Ratio 15 Ratio (12-20); Bilirubin,Direct 0.1 mg/dL (0.0-0.3); Bilirubin,Total 0.4 mg/dL (0.3-1.2); Blood Urea Nitrogen 19 mg/dL (9-23); Carbon Dioxide 28.4 mMol/L (20.0-31.0); Cardiac Risk Estimate 2.9 RATIO (3.7-5.6); Chloride 102 mMol/L (98-107); Cholesterol 178 mg/dL (132-200); Creatinine (Component) 1.3 mg/dL (0.6-1.3); Glucose 128 mg/dL (74-106); HDL Cholesterol 61 mg/dL (40-60); LDL Cholesterol,Calculated 103 mg/dL (0-130); Osmolality,Calculated 279 (275-295); Phosphorous 3.9 mg/dL (2.4-5.1); Potassium 4.4 mMol/L (3.4-5.1); Sodium 138 mMol/L (136-145); Total Protein 6.4 gm/dL (5.7-8.2); Triglycerides 68 mg/dL (30-150); eGFR 43 See Note
[2024-08-28 10:20] LABS: Bilirubin,Urine Negative (Negative); Blood,Urine Negative (Negative); Clarity,Urine Clear (Clear/Hazy); Color,Urine Lt-Yellow (Lt Yel-Yel); Glucose, Urine 4+ (Negative); Ketones,Urine Negative (Negative); Leukocyte Esterase,Urine Negative (Negative); Nitrite,Urine Negative (Negative); Protein,Urine Negative (Neg - Trace); RBC,Urine 3 /hpf (0-3); Specific Gravity,Urine 1.018 (1.001-1.035); Squamous Epithelial Cell,Urine < 1 /hpf (0-5); Urobilinogen,Urine Negative mg/dL (0.0-1.0); WBC,Urine < 1 /hpf (0-5)
== END | disposition home or self-care (01) ==
LOC: COPL 08:46
PROVIDERS: PCP Internal Medicine; Referring Provider Internal Medicine Nephrology; Visit Provider Internal Medicine Nephrology
DX: I12.9 Hypertensive chronic kidney disease with stage 1 through stage 4 chronic kidney disease, or unspecified chronic kidney disease (principal); N18.32 Chronic kidney disease, stage 3b; E78.5 Hyperlipidemia, unspecified
CPT/HCPCS: 36415; 80048; 80061; 80076; 81001; 83036; 84100; 85025

== ENCOUNTER → 2024-09-03 | Outpatient (CLI) | payer BC, MEDICARE, SELFPAY ==
--- NOTE | 2024-09-03 11:30 | XR_ITS ---
Examination: Breast ultrasound, unilateral, right complete Date and time of exam: September 03, 2024 1125 hours INDICATIONS: Outer right breast pain one week, mammogram July 30, 2024 8mm focal asymmetry upper outer right breast posterior depth Technique: Real-time suh scale ultrasonographic imaging performed right breast including all 4 quadrants as well as nipple retroareolar and axillary region. Findings: 9:00 nodule lobular margins 7 x 7 mm 10:00 nodule indistinct margins, taller than wide, 11 x 6 x 8 mm with breast biopsy marker IMPRESSION: BI-RADS Category 4: Suspicious for malignancy, recommend repeat biopsy of 10:00 suspicious nodule described above under ultrasound guidance
== END | disposition home or self-care (01) ==
LOC: CDIM 11:03
PROVIDERS: PCP Internal Medicine; Referring Provider Nurse Practitioner Family; Visit Provider Nurse Practitioner Family
DX: N63.11 Unspecified lump in the right breast, upper outer quadrant (principal); C50.411 Malignant neoplasm of upper-outer quadrant of right female breast
CPT/HCPCS: 76641

== ENCOUNTER → 2024-09-03 | Outpatient (CLI) | payer BC, MEDICARE, SELFPAY ==
--- NOTE | 2024-09-03 11:15 | XR_ITS ---
Examination: Diagnostic digital mammography, unilateral, right Computer aided detection 3-D breast Tomosynthesis, unilateral Date and time of exam: September 03, 2024 1153 hours INDICATIONS: Mammogram July 22, 2024 8mm focal asymmetry upper outer right breast Technique: Nonmagnified MLO, CC views of the right breast have been obtained, reconstructed from 3-D Tomosynthesis images. R2 computer aided detection program utilized for evaluation of suspicious masses and/or abnormal calcifications. 3-D Tomosynthesis images obtained. Findings: Scattered areas of fibroglandular density. Suspicious mass is confirmed 10:00 position right breast, corresponding to the ultrasound examination today Impression: BI-RADS category 4: Suspicious for malignancy Suspicious mass upper outer right breast corresponding to 10:00 nodule 11 x 6 x 8 mm on right breast sonogram today, biopsy of this nodule is needed to exclude breast carcinoma, the nodule is amenable to ultrasound-guided biopsy for diagnosis
== END | disposition home or self-care (01) ==
LOC: CDIM 11:49
PROVIDERS: PCP Internal Medicine; Referring Provider Nurse Practitioner Family; Visit Provider Nurse Practitioner Family
DX: R92.341 Mammographic extreme density, right breast (principal); N63.11 Unspecified lump in the right breast, upper outer quadrant
CPT/HCPCS: 77061; 77065; G0279

== ENCOUNTER 2024-09-08 11:11 | Outpatient (RCR) | payer BC, MEDICARE, SELFPAY | END 2024-10-02 23:59 | disposition home or self-care (01) | LOC: SCTC 11:11 | PROVIDERS: PCP Internal Medicine; Referring Provider Internal Medicine; Visit Provider Nurse Practitioner Family | DX: C50.411 Malignant neoplasm of upper-outer quadrant of right female breast (principal); Z17.0 Estrogen receptor positive status [ER+]; Z17.22 Progesterone receptor negative status; Z17.32 Human epidermal growth factor receptor 2 negative status; Z90.11 Acquired absence of right breast and nipple | CPT/HCPCS: 99212; G0463 ==

== ENCOUNTER → 2024-10-15 | Outpatient (CLI) | payer BC, MEDICARE, SELFPAY ==
[2024-10-15 10:04] LABS: Basophils # (Auto) 0.1 Thou/mm3 (0.0-0.2); Basophils % (Auto) 1 % (0-2.5); Eosinophils # (Auto) 0.2 Thou/mm3 (0.0-0.5); Eosinophils % (Auto) 5 % (0-10); Hematocrit 40.9 % (36.0-46.0); Hemoglobin 13.2 g/dL (12.0-16.0); Immature Granulocytes Auto 0.00 Thou/mm3 (0.00-0.00); Lymphocytes # (Auto) 1.4 Thou/mm3 (1.0-4.8); Lymphocytes % (Auto) 34 % (10-50); Mean Corpuscular HGB Conc 32.3 g/dl (31.0-37.0); Mean Corpuscular Hemoglobin 28.8 pg (25.0-35.0); Mean Corpuscular Volume 89 fL (80-100); Monocytes # (Auto) 0.4 Thou/mm3 (0.0-0.8); Monocytes % (Auto) 9 % (0-12); Neutrophils # (Auto) 2.2 Thou/mm3 (1.8-7.7); Neutrophils % (Auto) 51 % (37-80); Nucleated Red Blood Cell # 0.00 Thou/mm3 (0.00-0.00); Nucleated Red Blood Cell % 0 /100 WBC (0); Platelet Count 167 Thou/mm3 (140-440); RDW Standard Deviation 43.7 fL (36.4-46.3); Red Blood Count 4.59 Miln/mm3 (4.00-5.20); White Blood Count 4.3 Thou/mm3 (3.6-11.0)
[2024-10-15 10:18] LABS: Alanine Aminotransferase 13 U/L (10-49); Albumin, Serum 4.3 gm/dL (3.4-4.8); Albumin/Globulin Ratio 1.9 (1.2-2.2); Alkaline Phosphatase 66 U/L (46-116); Anion Gap 8 (7-16); Aspartate Amino Transferase 20 U/L (0-34); BUN/Creatinine Ratio 14 Ratio (12-20); Bilirubin,Total 0.4 mg/dL (0.3-1.2); Blood Urea Nitrogen 20 mg/dL (9-23); Calcium 9.5 mg/dL (8.3-10.6); Calcium (Corrected) 9.5 mg/dL (8.5-10.1); Carbon Dioxide 27.8 mMol/L (20.0-31.0); Chloride 106 mMol/L (98-107); Creatinine (Component) 1.4 mg/dL (0.6-1.3); Globulin 2.3 gm/dL (2.3-3.5); Glucose 141 mg/dL (74-106); Osmolality,Calculated 287 (275-295); Potassium 4.6 mMol/L (3.4-5.1); Sodium 142 mMol/L (136-145); Total Protein 6.6 gm/dL (5.7-8.2); eGFR 39 See Note
[2024-10-15 10:34] LABS: CA 15-3 14.7 U/mL (<32.4); Carcinoembryonic Antigen 0.6 ng/mL (0.0-5.0)
== END | disposition home or self-care (01) ==
LOC: COPL 09:16 → SCTO 09:16
PROVIDERS: PCP Internal Medicine; Referring Provider Nurse Practitioner Family; Visit Provider Nurse Practitioner Family
DX: C50.411 Malignant neoplasm of upper-outer quadrant of right female breast (principal)
CPT/HCPCS: 36415; 80053; 82378; 85025; 86300

== ENCOUNTER → 2024-10-24 | Outpatient (CLI) | payer BC, MEDICARE, SELFPAY ==
[2024-10-20 12:35] LABS: Basophils # (Auto) 0.1 Thou/mm3 (0.0-0.2); Basophils % (Auto) 1 % (0-2.5); Eosinophils # (Auto) 0.2 Thou/mm3 (0.0-0.5); Eosinophils % (Auto) 4 % (0-10); Hematocrit 41.5 % (36.0-46.0); Hemoglobin 13.3 g/dL (12.0-16.0); Immature Granulocytes Auto 0.01 Thou/mm3 (0.00-0.00); Lymphocytes # (Auto) 1.7 Thou/mm3 (1.0-4.8); Lymphocytes % (Auto) 30 % (10-50); Mean Corpuscular HGB Conc 32.0 g/dl (31.0-37.0); Mean Corpuscular Hemoglobin 28.5 pg (25.0-35.0); Mean Corpuscular Volume 89 fL (80-100); Monocytes # (Auto) 0.4 Thou/mm3 (0.0-0.8); Monocytes % (Auto) 7 % (0-12); Neutrophils # (Auto) 3.4 Thou/mm3 (1.8-7.7); Neutrophils % (Auto) 58 % (37-80); Nucleated Red Blood Cell # 0.00 Thou/mm3 (0.00-0.00); Nucleated Red Blood Cell % 0 /100 WBC (0); Platelet Count 181 Thou/mm3 (140-440); RDW Standard Deviation 43.2 fL (36.4-46.3); Red Blood Count 4.66 Miln/mm3 (4.00-5.20); White Blood Count 5.8 Thou/mm3 (3.6-11.0)
[2024-10-20 12:40] LABS: INR 1.0 (0.9-1.3); Partial Thromboplastin Time 23.5 Seconds (22.0-36.0); Prothrombin Time 10.5 Seconds (9.0-12.2)
--- NOTE | 2024-10-24 10:00 | XR_ITS ---
Examinations: Ultrasound-guided percutaneous breast biopsy, right 10:00 nodule Right breast sonography limited INDICATIONS: BI-RADS 4 suspicious nodule right breast 10:00 position September 03, 2024. Exam date and time: October 24, 2024 1023 hours. Informed consent provided. Technique: A timeout was completed verifying correct patient, procedure, site, positioning, and special equipment if applicable Informed consent provided. The patient was placed in a supine position for the breast biopsy. Sonographic images of the breast were performed for localization of the suspicious nodule The patient's breast was prepped and draped in sterile fashion. Maximum sterile barrier technique, hand hygiene, ultrasound sterile technique 1% lidocaine was used to anesthetize the skin and breast adjacent to the suspicious nodule. Utilizing ultrasonographic guidance, 8 core biopsies were obtained of the suspicious nodule utilizing an 18-gauge BioPince needle. The specimens appears satisfactory. Patient has a breast biopsy marker Estimated blood loss 3 cc. The patient tolerated the procedure well and there were no complications. Impression: Successful ultrasound-guided percutaneous breast biopsy, right breast 10:00 nodule.
== END | disposition home or self-care (01) ==
LOC: SIRX 09:29
PROVIDERS: Radiology Diagnostic Radiology; PCP Internal Medicine; Referring Provider Nurse Practitioner Family; Visit Provider Nurse Practitioner Family
DX: N60.31 Fibrosclerosis of right breast (principal); C50.411 Malignant neoplasm of upper-outer quadrant of right female breast; Z01.812 Encounter for preprocedural laboratory examination
CPT/HCPCS: 19083; 36415; 85025; 85610; 85730

== ENCOUNTER → 2024-10-31 | Outpatient (CLI) | payer BC, MEDICARE, SELFPAY ==
--- NOTE | 2024-10-31 16:45 | XR_ITS ---
Examination: MRI lumbar spine., without intravenous contrast. MRI lumbar spine. , with intravenous contrast. Exam date and time: October 31, 2024, 1745 hrs. Indications: Diagnosis malignant neoplasm upper outer quadrant right female breast. Low back pain after falling several months ago Technique: Multiple axial, sagittal and coronal images of the lumbar spine have been obtained with the Siemens high-resolution 1.5 Connie MRI scanner. Images obtained included T2 weighted fat suppressed sagittal sections, TR 3500, TE 46, T2 weighted coronal fat suppressed images, TR 3050, TE 84, T2-weighted transverse fat suppressed images, TR 30-60, TE 63, proton density transverse images, TR 4720, TE 46, and T1 weighted coronal images, TR 560, TE 13. Axial, sagittal and coronal images are obtained post intravenous injection 3 cc gadolinium. Findings: Adequate alignment lumbar vertebral bodies. Subacute compression fracture, severe, L2 vertebral body, reduction in height 80%. Retropulsion posterior superior margin of this vertebral body 4 mm. Enhancement involving the vertebral body seen with subacute fractures. Moderate disc narrowing L4-L5. L5-S1 6 mm central lumbar disc bulge L4-L5 5 mm central lumbar disc bulge L3-L4 no disc protrusion L2-L3 no disc protrusion L1-2 no disc protrusion. Impression: Severe subacute compression fracture L2 vertebral body. No findings diagnostic for osseous metastatic disease.
== END | disposition home or self-care (01) ==
LOC: SMRI 16:26
PROVIDERS: PCP Internal Medicine Hematology & Oncology; Referring Provider Nurse Practitioner Family; Visit Provider Nurse Practitioner Family
DX: S32.029A Unspecified fracture of second lumbar vertebra, initial encounter for closed fracture (principal); W19.XXXA Unspecified fall, initial encounter
CPT/HCPCS: 72158; A9577

== ENCOUNTER 2024-11-04 08:53 | Outpatient (RCR) | payer BC, MEDICARE, SELFPAY | END 2024-12-02 23:59 | disposition home or self-care (01) | LOC: SCTC 08:53 | PROVIDERS: PCP Internal Medicine; Referring Provider Internal Medicine; Visit Provider Nurse Practitioner Family | DX: C50.411 Malignant neoplasm of upper-outer quadrant of right female breast (principal); Z17.0 Estrogen receptor positive status [ER+]; Z17.21 Progesterone receptor positive status; Z17.32 Human epidermal growth factor receptor 2 negative status; Z79.811 Long term (current) use of aromatase inhibitors; M85.80 Other specified disorders of bone density and structure, unspecified site; S32.000D Wedge compression fracture of unspecified lumbar vertebra, subsequent encounter for fracture with routine healing; X58.XXXD Exposure to other specified factors, subsequent encounter; E11.22 Type 2 diabetes mellitus with diabetic chronic kidney disease; I12.9 Hypertensive chronic kidney disease with stage 1 through stage 4 chronic kidney disease, or unspecified chronic kidney disease; N18.9 Chronic kidney disease, unspecified; Z79.84 Long term (current) use of oral hypoglycemic drugs | CPT/HCPCS: 99212; G0463 ==

== ENCOUNTER → 2024-12-04 | Outpatient (CLI) | payer BC, MEDICARE, SELFPAY ==
[2024-12-04 10:12] LABS: Glucose Estimated Average 169 mg/dL (80-131); Hemoglobin A1C 7.5 % Hgb (4.8-6.0)
== END | disposition home or self-care (01) ==
LOC: COPL 09:18
PROVIDERS: PCP Internal Medicine; Referring Provider Internal Medicine; Visit Provider Internal Medicine
DX: E11.65 Type 2 diabetes mellitus with hyperglycemia (principal)
CPT/HCPCS: 36415; 83036

== ENCOUNTER → 2025-01-27 | Outpatient (CLI) | payer BC, MEDICARE, SELFPAY ==
[2025-01-27 09:49] LABS: Basophils # (Auto) 0.0 Thou/mm3 (0.0-0.2); Basophils % (Auto) 1 % (0-2.5); Eosinophils # (Auto) 0.2 Thou/mm3 (0.0-0.5); Eosinophils % (Auto) 5 % (0-10); Hematocrit 39.4 % (36.0-46.0); Hemoglobin 12.9 g/dL (12.0-16.0); Immature Granulocytes Auto 0.00 Thou/mm3 (0.00-0.00); Lymphocytes # (Auto) 1.3 Thou/mm3 (1.0-4.8); Lymphocytes % (Auto) 31 % (10-50); Mean Corpuscular HGB Conc 32.7 g/dl (31.0-37.0); Mean Corpuscular Hemoglobin 28.7 pg (25.0-35.0); Mean Corpuscular Volume 88 fL (80-100); Monocytes # (Auto) 0.3 Thou/mm3 (0.0-0.8); Monocytes % (Auto) 8 % (0-12); Neutrophils # (Auto) 2.3 Thou/mm3 (1.8-7.7); Neutrophils % (Auto) 56 % (37-80); Nucleated Red Blood Cell # 0.00 Thou/mm3 (0.00-0.00); Nucleated Red Blood Cell % 0 /100 WBC (0); Platelet Count 169 Thou/mm3 (140-440); RDW Standard Deviation 42.9 fL (36.4-46.3); Red Blood Count 4.50 Miln/mm3 (4.00-5.20); White Blood Count 4.1 Thou/mm3 (3.6-11.0)
[2025-01-27 10:17] LABS: Alanine Aminotransferase 17 U/L (10-49); Albumin, Serum 4.3 gm/dL (3.4-4.8); Albumin/Globulin Ratio 2.3 (1.2-2.2); Anion Gap 9 (7-16); Aspartate Amino Transferase 21 U/L (0-34); BUN/Creatinine Ratio 13 Ratio (12-20); Bilirubin,Total 0.5 mg/dL (0.3-1.2); Blood Urea Nitrogen 17 mg/dL (9-23); Calcium 9.4 mg/dL (8.3-10.6); Calcium (Corrected) 9.4 mg/dL (8.5-10.1); Carbon Dioxide 26.7 mMol/L (20.0-31.0); Chloride 108 mMol/L (98-107); Creatinine (Component) 1.3 mg/dL (0.6-1.3); Globulin 1.9 gm/dL (2.3-3.5); Glucose 140 mg/dL (74-106); Osmolality,Calculated 290 (275-295); Potassium 4.4 mMol/L (3.4-5.1); Sodium 144 mMol/L (136-145); Total Protein 6.2 gm/dL (5.7-8.2); eGFR 43 See Note
[2025-01-27 10:31] LABS: Alkaline Phosphatase 66 U/L (46-116)
[2025-01-27 13:09] LABS: CA 15-3 15.3 U/mL (<32.4); Carcinoembryonic Antigen 0.5 ng/mL (0.0-5.0)
== END | disposition home or self-care (01) ==
PROVIDERS: PCP Nurse Practitioner Family; Referring Provider Nurse Practitioner Family; Visit Provider Nurse Practitioner Family
DX: C50.411 Malignant neoplasm of upper-outer quadrant of right female breast (principal)
CPT/HCPCS: 36415; 80053; 82378; 85025; 86300

== ENCOUNTER 2025-02-03 08:45 | Outpatient (RCR) | payer BC, MEDICARE, SELFPAY | END 2025-03-04 23:59 | disposition home or self-care (01) | LOC: SCTC 08:45 | PROVIDERS: PCP Internal Medicine; Referring Provider Internal Medicine; Visit Provider Nurse Practitioner Family | DX: C50.411 Malignant neoplasm of upper-outer quadrant of right female breast (principal); Z17.0 Estrogen receptor positive status [ER+]; Z17.22 Progesterone receptor negative status; Z17.32 Human epidermal growth factor receptor 2 negative status; M85.80 Other specified disorders of bone density and structure, unspecified site; I25.10 Atherosclerotic heart disease of native coronary artery without angina pectoris; Z95.5 Presence of coronary angioplasty implant and graft; E11.22 Type 2 diabetes mellitus with diabetic chronic kidney disease; I12.9 Hypertensive chronic kidney disease with stage 1 through stage 4 chronic kidney disease, or unspecified chronic kidney disease; N18.9 Chronic kidney disease, unspecified; Z79.84 Long term (current) use of oral hypoglycemic drugs; Z79.811 Long term (current) use of aromatase inhibitors | CPT/HCPCS: 99212; G0463 ==